=== PATIENT | female | born 1965 ===

== ENCOUNTER 2018-07-07 13:44 | Emergency (ER) | payer SELFPAY ==
[2018-07-07 14:07] VITALS: BP 133/91; PULSE 103; RESP 20; TEMP 99.3; O2SAT 95
--- NOTE | 2018-07-07 14:44 | C.PDOC ---
History Of Present Illness L EYE REDNESS, IRRITATION X 5 DAYS. +ITCH. NO FB SENSATION, VISION CHANGE EXAM NONTOXIC HEENT +CONJUNCTIVITIS L EYE PERIORB WNL; EOMI; PERRLA REMAIDNER NEG Time Seen by Provider: 07/07/18 14:36 Chief Complaint (Nursing): Eye Problem History Per: Patient History/Exam Limitations: no limitations Onset/Duration Of Symptoms: Days Current Symptoms Are (Timing): Still Present Severity: Moderate Past Medical History Reviewed: Historical Data, Nursing Documentation, Vital Signs Vital Signs: Last Vital Signs Temp 99.3 F 07/07/18 14:03 Pulse 103 H 07/07/18 14:03 Resp 20 07/07/18 14:03 BP 133/91 H 07/07/18 14:03 Pulse Ox 95 07/07/18 14:03 Primary Care Provider: Kalin [place] - Medical History PMH: Back Problems, HTN Surgical History: No Surg Hx Family History: States: No Known Family Hx - Social History Hx Tobacco Use: No Hx Alcohol Use: No Hx Substance Use: No Review Of Systems Except As Marked, All Systems Reviewed And Found Negative. Constitutional: Negative for: Fever, Chills Eyes: Positive for: Redness (left eye redness). Negative for: Vision Change Physical Exam - Physical Exam Appears: Non-toxic Skin: Normal Color, Warm, Dry Head: Atraumatic, Normacephalic Eye(s): bilateral: PERRL, EOMI, left: Other (conjunctivitis, periorbital wnl) Neck: Supple Chest: Symmetrical Neurological/Psych: Oriented x3, Normal Speech ED Course And Treatment O2 Sat by Pulse Oximetry: 95 (RA) Pulse Ox Interpretation: Normal Disposition Counseled Patient/Family Regarding: Diagnosis, Need For Followup, Rx Given - Disposition Referrals: Dami Tompkins [Staff Provider] - Disposition: HOME/ ROUTINE Disposition Time: 14:45 Condition: IMPROVED Prescriptions: Ibuprofen [Motrin] 600 mg PO Q6 #30 tab Polymyxin/Trimethoprim Sulfate [Polytrim Ophth Soln] 1 drop OD Q3H #1 bottle Instructions: Conjunctivitis (Pinkeye) (DC) Forms: [facility] (Latvian) - Clinical Impression Clinical Impression: Conjunctivitis - Scribe Statement The provider has reviewed the documentation as recorded by the Carlo Conn Provider Attestation: All medical record entries made by the Scribe were at my direction and personally dictated by me. I have reviewed the chart and agree that the record accurately reflects my personal performance of the history, physical exam, medical decision making, and the department course for this patient. I have also personally directed, reviewed, and agree with the discharge instructions and disposition.
== END 2018-07-07 15:22 | disposition home or self-care (01) ==
LOC: C.ER 13:44
DX: H10.9 Unspecified conjunctivitis (principal); I10 Essential (primary) hypertension

== ENCOUNTER 2018-07-09 14:28 | Emergency (ER) | payer SELFPAY ==
[2018-07-09 14:50] VITALS: BMI 25.6
[2018-07-09 14:53] VITALS: BP 152/91; PULSE 80; TEMP 99.1; O2SAT 97
[2018-07-09] MEDS ORDERED: Tetracaine 0.5% Ophth (OR ONLY) OD ONE (15:22)
[2018-07-09] MEDS ORDERED: Tetracaine 0.5% Ophth (OR ONLY) ONE (15:32)
--- NOTE | 2018-07-09 15:46 | C.PDOC ---
History Of Present Illness 52 y/o female presents to ED reporting that shes been having left eye redness and pain for the last several days. Patient reports she has history of eye inflammation that happens occasionally for the last 20 years and has an oncology physician, Dr. Ju George, who previously gave her prednisolone eye drops. Patient states she lost her insurance and hasnt been able to see her. Denies headache, dizziness, fever, trauma, injuries, or rash. Time Seen by Provider: 07/09/18 15:00 Chief Complaint (Nursing): Eye Problem History Per: Patient History/Exam Limitations: no limitations Onset/Duration Of Symptoms: Days Current Symptoms Are (Timing): Still Present Past Medical History Reviewed: Historical Data, Nursing Documentation, Vital Signs Vital Signs: Last Vital Signs Temp 99.1 F 07/09/18 14:50 Pulse 80 07/09/18 14:50 Resp 16 07/09/18 14:50 BP 152/91 H 07/09/18 14:50 Pulse Ox 97 07/09/18 14:50 Primary Care Provider: FAMILY PROVIDER,NO - Medical History PMH: Back Problems, HTN Family History: States: No Known Family Hx - Social History Hx Tobacco Use: No Hx Alcohol Use: No Hx Substance Use: No Review Of Systems Constitutional: Negative for: Fever, Chills Eyes: Positive for: Pain, Redness (left eye). Negative for: Vision Change Skin: Negative for: Rash Neurological: Negative for: Headache, Dizziness Physical Exam - Physical Exam Appears: Non-toxic, No Acute Distress Skin: Warm, Dry, No Rash Head: Normacephalic Eye(s): right: Normal Inspection, left: Other (left eye sclera injected, pupil dilated and minimally reactive, no discharge, no periorbital erythema) Oral Mucosa: Moist Neck: Supple Cardiovascular: Rhythm Regular, No Murmur Respiratory: Normal Breath Sounds, No Rales, No Rhonchi, No Wheezing Extremity: Bilateral: Normal Color And Temperature Neurological/Psych: Oriented x3, Normal Speech ED Course And Treatment O2 Sat by Pulse Oximetry: 97 (RA) Pulse Ox Interpretation: Normal Progress Note: Ocular pressures: 18 mmHg on right, 15 mmHg on left. Gave patient eyedrops and instructed to follow up with oncology physician. Disposition Counseled Patient/Family Regarding: Diagnosis, Need For Followup, Rx Given - Disposition Referrals: Ju George DO [Doctor Osteopathy] - Disposition: HOME/ ROUTINE Disposition Time: 15:45 Condition: STABLE Additional Instructions: FOLLOW UP WITH YOUR EYE DOCTOR WITHIN 1 WEEK USE MEDICATION DIRECTED RETURN TO EMERGENCY ROOM IF YOUR SYMPTOMS BECOME WORSE SIGUE CON TU DOCTOR DEL OLIVER DENTRO DE 1 SEMANA UTILICE MEDICAMENTOS BRIE SE DIRIGE VUELVA A LA RESHMA DE EMERGENCIA SI BUDDY SNTOMAS SE HACEN PEOR Prescriptions: Prednisolone Acetate/Pf [Prednisolone Acet 1% Eye Drop] 2 drop OP QID #1 bottle Instructions: Uveitis Forms: [employer] (Syriac) Print Language: CZECH - Clinical Impression Clinical Impression: Uveitis - Scribe Statement The provider has reviewed the documentation as recorded by the Mikiibosbaldo Wilcox Provider Attestation: All medical record entries made by the Mikiibe were at my direction and person ally dictated by me. I have reviewed the chart and agree that the record accurately reflects my personal performance of the history, physical exam, medical decision making, and the department course for this patient. I have also personally directed, reviewed, and agree with the discharge instructions and disposition.
[2018-07-09 15:56] VITALS: RESP 18
== END 2018-07-09 15:56 | disposition home or self-care (01) ==
LOC: C.ER 14:28
DX: H20.9 Unspecified iridocyclitis (principal)